=== PATIENT | female | born 1960 | race American Indian/Alaskan Native ===

== ENCOUNTER 2018-09-27 15:33 | Emergency (ER) | payer MEDICARE, OTHER ==
[~2018-09-27] VITALS: Ht 167.6 cm; Wt 113.4 kg
--- OUTSIDE RECORDS SUMMARY | ~2018-09-27 | XMS | Clinical Summary ---
Demographics + + + | Address | [address] | | | [place] [address] | + + + | Home Phone | | + + + | Preferred Language | Unknown | + + + | Marital Status | | + + + | Gnosticism Affiliation | 1041 | + + + | Race | Unknown | + + + | Ethnic Group | Unknown | + + + Author + + + | Author | [facility] | | | and [place] | + + + | Organization | [facility] | | | and [place] | + + + | Address | Unknown | + + + | Phone | Unavailable | + + + Support + + +---------+ + | Name | Relationship | Address | Phone | + + +---------+ + | None,Per Patient | ECON | Unknown | | + + +---------+ + Care Team Providers + +------+ + | Care Recruitment Advertising Manager Name | Role | Phone | + +------+ + | Aye Stock PA-C | PP | | + +------+ + Allergies + + + + + + | Active Allergy | Reactions | Severity | Noted | Comments | | | | | Date | | + + + + + + | Atenolol | Hives | | 01/29/20 | | | | | | 14 | | + + + + + + | Bee Venom | | | 09/07/19 | | | | | | 16 | | + + + + + + | Codeine | Hives | | 11/20/19 | | | | | | 13 | | + + + + + + | Duloxetine | Hives | | 11/20/19 | | | | | | 13 | | + + + + + + | Gabapentin | Rash | Low | 07/23/19 | | | | | | 17 | | + + + + + + | Lidocaine | Hives | | 08/28/19 | | | | | | 17 | | + + + + + + | Metoprolol | Hives | | 12/30/19 | | | | | | 14 | | + + + + + + | Morphine | Hives | | 11/20/19 | | | | | | 13 | | + + + + + + | Naproxen | Hives | | 11/20/19 | | | | | | 13 | | + + + + + + | Nsaids | Hives | | 11/20/19 | | | | | | 13 | | + + + + + + | Penicillins | Hives | | 11/20/19 | | | | | | 13 | | + + + + + + | Pentazocine | Hives | | 11/20/19 | | | | | | 13 | | + + + + + + | Shellfish | | | 09/07/19 | | | | | | 16 | | + + + + + + | Tricyclic | | | 11/20/19 | | | Antidepressants | | | 13 | | + + + + + + | Hydrocodone | Hives | | 11/20/19 | | | | | | 13 | | + + + + + + Medications + + + +---------+------+------+-------+ | Medication | Sig | Dispensed | Refills | Star | End | Statu | | | | | | t | Date | s | | | | | | Date | | | + + + +---------+------+------+-------+ | Multiple | Take by mouth | | 0 | | | Activ | | Vitamins-Minerals | Daily. | | | | | e | | (DAILY MULTI | | | | | | | | VITAMIN/MINERALS PO) | | | | | | | + + + +---------+------+------+-------+ | [place] 3 1000 MG | Take 2 capsules by | | 0 | | | Activ | | CAPS | mouth Daily. | | | | | e | + + + +---------+------+------+-------+ | magnesium, as | Take 250 mg by mouth | | 0 | | | Activ | | oxide, 250 MG tablet | Daily. | | | | | e | + + + +---------+------+------+-------+ | Potassium | Take 1 tablet by | | 0 | | | Activ | | Gluconate 595 MG | mouth Daily. | | | | | e | | TBCR | | | | | | | + + + +---------+------+------+-------+ | Raspberry Ketones | Take 1 capsule by | | 0 | | | Activ | | 100 MG CAPS | mouth Daily. | | | | | e | + + + +---------+------+------+-------+ | Specialty Vitamins | Take 3 tablets by | | 0 | | | Activ | | Products (COLLAGEN | mouth Daily. | | | | | e | | ULTRA) CAPS | | | | | | | + + + +---------+------+------+-------+ | niacin | Take 500 mg by mouth | | 0 | | | Activ | | (SLO-NIACIN) 500 mg | nightly. | | | | | e | | CR tablet | | | | | | | + + + +---------+------+------+-------+ | Plant Sterols and | Take 800 mg by mouth | | 0 | | | Activ | | Stanols (CHOLESTOFF | Daily. | | | | | e | | PO) | | | | | | | + + + +---------+------+------+-------+ | Cholecalciferol | Take 2,000 Units by | | 0 | | | Activ | | (VITAMIN D-3) 2000 | mouth Daily. | | | | | e | | units CAPS | | | | | | | + + + +---------+------+------+-------+ | B Complex Vitamins | Take by mouth | | 0 | | | Activ | | (B COMPLEX PO) | Daily. | | | | | e | + + + +---------+------+------+-------+ | TURMERIC PO | Take by mouth | | 0 | | | Activ | | | Daily. | | | | | e | + + + +---------+------+------+-------+ | UNABLE TO FIND | Take 3 capsules by | | 0 | | | Activ | | | mouth Daily. Med | | | | | e | | | Name: Des Gaitan | | | | | | | | Caps | | | | | | + + + +---------+------+------+-------+ | Misc Natural | Take by mouth. | | 0 | | | Activ | | Products (TART | | | | | | e | | CAMACHO ADVANCED) | | | | | | | | CAPS | | | | | | | + + + +---------+------+------+-------+ Active Problems + + + | Problem | Noted Date | + + + | Pacemaker reprogramming/check | 02/16/2015 | + + + | PVC (premature ventricular contraction) | 04/01/2013 | + + + + + | Overview: Holter Monitor 03/07/13. | + + + + + | Pacemaker, MEDTRONIC - 12/29/12, Bradycardia, SUW | 01/10/2013 | + + + + + | Overview: Formatting of this note might be different from the | | original. MODEL NAME MODEL# SERIAL# DATE IMPLANTED GENERATOR | | Medtronic Adapta [id number] [id number] 12/29/12 RV LEAD Medtronic | | Active Bilpolar CapSureFix 4076 - 52cm [id number] A LEAD | | Medtronic Active Bilpolar CapSureFix 4076 - 45cm [id number] | | 12/29/12 | + + + + + | Chest pain | 12/16/2012 | + + + + + | Overview: Chest XR 11/30/12. | | Cardiac Cath, 03/15/13, LVEF 65-70%. | + + + + + | SOB (shortness of breath) | 12/16/2012 | + + + | Bradycardia | 11/23/2012 | + + + + + | Overview: Holter Monitor 12/15/12. | | Echo 12/16/12, LVEF 55%. | | Nuclear Stress Test 12/15/12, LVEF 64%. | | Pacemaker, Medtronic, 12/29/12. SUW | + + + + + | Lightheadedness | 11/23/2012 | + + + | Pre-syncope | 11/23/2012 | + + + | Tobacco abuse | 11/19/2012 | + + + | Depression | 11/19/2012 | + + + | GERD (gastroesophageal reflux disease) | 11/19/2012 | + + + | Dizziness | 11/19/2012 | + + + | Paresthesias | 11/19/2012 | + + + | Hypercalcemia | 11/19/2012 | + + + Family History + + +------+ + | Medical History | Relation | Name | Comments | + + +------+ + | Mental retardation | Brother | | | + + +------+ + | Heart disease | Brother | | | + + +------+ + | Mental retardation | Child | | FAS | + + +------+ + | Alcohol abuse | Father | | | + + +------+ + | Heart disease | Father | | | + + +------+ + | Hypertension | Father | | | + + +------+ + | Parkinsonism | Father | | | + + +------+ + | Breast cancer | Maternal | | | | | Aunt | | | + + +------+ + | Tuberculosis | Maternal | | | | | Aunt | | | + + +------+ + | Tuberculosis | Maternal | | | | | Grandfath | | | | | er | | | + + +------+ + | No known problems | Maternal | | | | | Grandmoth | | | | | er | | | + + +------+ + | No known problems | Maternal | | | | | Uncle | | | + + +------+ + | Diabetes | Mother | | | + + +------+ + | Hypertension | Mother | | | + + +------+ + | Obesity | Mother | | | + + +------+ + | Stroke | Mother | | | + + +------+ + | Hypertension | Other | | grandparent | + + +------+ + | Thyroid disease | Other | | goiter, family hx | + + +------+ + | Seizures | Other | | FAMILY HX | + + +------+ + | Alcohol abuse | Paternal | | | | | Aunt | | | + + +------+ + | Diabetes | Paternal | | | | | Aunt | | | + + +------+ + | Rheum arthritis | Paternal | | | | | Aunt | | | + + +------+ + | No known problems | Paternal | | | | | Grandfath | | | | | er | | | + + +------+ + | Diabetes | Paternal | | | | | Grandmoth | | | | | er | | | + + +------+ + | Hypertension | Sister | | | + + +------+ + | Diabetes | Sister | | | + + +------+ + + +--------+ + + | Relation | Name | Status | Comments | + +--------+ + + | Brother | | | | + +--------+ + + | Brother | | Alive | | + +--------+ + + | Brother | | Alive | | + +--------+ + + | Brother | | Alive | | + +--------+ + + | Brother | | | | + +--------+ + + | Brother | | | | + +--------+ + + | Child | | Alive | | + +--------+ + + | Child | | Alive | | + +--------+ + + | Child | | Alive | | + +--------+ + + | Child | | | | + +--------+ + + | Father | | | | | | | (Age | | | | | 72) | | + +--------+ + + | Maternal Aunt | | | | + +--------+ + + | Maternal Aunt | | | | + +--------+ + + | Maternal Aunt | | | | + +--------+ + + | Maternal Grandfather | | | TB | + +--------+ + + | Maternal Grandmother | | | | + +--------+ + + | Maternal Uncle | | | | + +--------+ + + | Maternal Uncle | | | | + +--------+ + + | Mother | | Alive | | + +--------+ + + | Other | | | | + +--------+ + + | Other | | | | + +--------+ + + | Other | | | | + +--------+ + + | Paternal Aunt | | | | + +--------+ + + | Paternal Aunt | | | | + +--------+ + + | Paternal Aunt | | | | + +--------+ + + | Paternal Aunt | | | | + +--------+ + + | Paternal Grandfather | | | | + +--------+ + + | Paternal Grandmother | | | | + +--------+ + + | Sister | Alesha | Alive | | + +--------+ + + | Sister | Lexie | Alive | Half -Sibling | + +--------+ + + | Sister | | | | + +--------+ + + | Sister | | | | + +--------+ + + Social History + + + +--------+ + | Tobacco Use | Types | Packs/Day | Years | Date | | | | | Used | | + + + +--------+ + | Former Smoker | Cigarettes | 2 | 41 | 12/11/1971 - | | | | | | 12/10/2012 | + + + +--------+ + + +---+---+---+ | Smokeless Tobacco: | | | | | Never Used | | | | + +---+---+---+ + + +---------+ + | Alcohol Use | Drinks/We | oz/Week | Comments | | | ek | | | + + +---------+ + | No | 0 | 0.0 | Recovering Alcoholic: QUIT 2006 | | | Standard | | | | | drinks or | | | | | | | | | | equivalen | | | | | t | | | + + +---------+ + + + + | Sex Assigned at | Date Recorded | | | | + + + | Not on file | | + + + + + + + | Job Start Date | Occupation | Industry | + + + + | Not on file | Not on file | Not on file | + + + + + + + + | Travel History | Travel Start | Travel End | + + + + + + | No recent travel history available. | + + Last Filed Vital Signs + + + + | Vital Sign | Reading | Time Taken | + + + + | Blood Pressure | 124/68 | 04/01/20181005 PST | + + + + | Pulse | 70 | 04/01/20181005 PST | + + + + | Temperature | 37.3 C (99.2 F) | 08/27/20161216 PDT | + + + + | Respiratory Rate | 20 | 04/01/20181005 PST | + + + + | Oxygen Saturation | 95% | 08/27/20168 PDT | + + + + | Inhaled Oxygen | - | - | | Concentration | | | + + + + | Weight | 100.5 kg (221 lb 9 | 04/01/20181005 PST | | | oz) | | + + + + | Height | 170.2 cm (5' 7") | 04/01/20181005 PST | + + + + | Body Mass Index | 34.7 | 04/01/20181005 PST | + + + + Plan of Treatment + + + + + | Health Maintenance | Due Date | Last Done | Comments | + + + + + | Hepatitis C | | | | | Screening | 3 | | | + + + + + | Breast Cancer | | | | | Screening (Ages | 3 | | | | 50-74) | | | | + + + + + | Colorectal Cancer | | | | | Screening | 3 | | | | (Colonoscopy) | | | | + + + + + | Adult Annual | | | | | Wellness Visit | 5 | | | + + + + + | Lung Cancer | | | | | Screening | 8 | | | + + + + + | Vaccine: Zoster (2 | | 01/01/2018 | | | of 2) | 8 | | | + + + + + | Vaccine: | | 07/24/2010 | | | Dtap/Tdap/Td (2 - | 1 | | | | Td) | | | | + + + + + | Vaccine: Influenza | Completed | 01/01/2018, 01/23/2017, | | | | | 12/21/2015, Additional history | | | | | exists | | + + + + + Implants + +--------+--------+ +--------+--------+--------+ | Implanted | Type | Area | Manufacture | Device | Shelf | Model | | | | | r | | Expira | / | | | | | | Identi | tion | Serial | | | | | | fier | Date | / Lot | + +--------+--------+ +--------+--------+--------+ | Medtronic - Dual | Pacema | Chest | | | | | | ChamberImplanted: 12/29/2012 | ker | Wall | | | | /[id number] | | by Oliva Haines MD | | | | | | [id number] | | (Quantity not on | | | | | | /ADDR0 | | file)Explanted: | | | | | | 1 | + +--------+--------+ +--------+--------+--------+ Results Not on filefrom Last 3 Months Insurance + +--------+ +--------+ +---------+--------+ | Payer | Benefi | Subscriber | Effect | Phone | Address | Type | | | t Plan | ID | ines | | | | | | / | | Dates | | | | | | Group | | | | | | + +--------+ +--------+ +---------+--------+ | MEDICARE | MEDICA | [id number] | 04/27/19 | [phone] | | Medica | | | RE | | 17-Pre | 5 | | re | | | PART A | | sent | | | | | | AND B | | | | | | + +--------+ +--------+ +---------+--------+ | [place] | MEDICA | [id number] | | [phone] | | Medica | | | ID | | 017-Pr | 2 | | id | | | [place] | | esent | | | | + +--------+ +--------+ +---------+--------+ | [facility] | IHS | [id number] | | | | Indemn | | SERVICE | YELLOW | | 013-Pr | | | ity | | | [place] | | esent | | | | + +--------+ +--------+ +---------+--------+ + +--------+ +--------+ + + | Guarantor Name | Accoun | Relation to | Date | Phone | Billing Address | | | t Type | Patient | of | | | | | | | | | | + +--------+ +--------+ + + | Anna Willis | Person | Self | [birth year] | [address] | | | will/Tony | | 1961 | [phone] | [place] [address] | | | vickie | | | 5 (Home) | | + +--------+ +--------+ + + Advance Directives Patient has advance care planning documents on file. For more information, please contact:[facility] [place] [address]
--- OUTSIDE RECORDS SUMMARY | ~2018-09-27 | XMS | Clinical Summary ---
Demographics + + + | Address | [address] | | | [place] [address] | + + + | Home Phone | | + + + | Preferred Language | Unknown | + + + | Marital Status | | + + + | Christian Affiliation | 1041 | + + + | Race | Unknown | + + + | Ethnic Group | Unknown | + + + Author + + + | Author | [facility] | | | and [place] | + + + | Organization | [facility] | | | and [place] | [...] Team Providers + +------+ + | Care Meter Engineer Name | Role | Phone | + [...] | | + + + +---------+------+------+-------+ | [place] 3 1000 MG | Take 2 capsules [...] IMPLANTED GENERATOR | | Medtronic Adapta ADDR01 [id number] 12/29/12 RV LEAD Medtronic | | Active Bilpolar CapSureFix 4076 - 52cm [id number] A LEAD | | Medtronic Active Bilpolar CapSureFix 4076 - 45cm [id number] | | 12/29/12 | + + + [...] +--------+ +---------+--------+ | MEDICARE | MEDICA | [id number] | 04/27/19 | [phone] | | Medica | | | RE | | 17-Pre | 5 | | re | | | PART A | | sent | | | | | | AND B | | | | | | + +--------+ +--------+ +---------+--------+ | [place]ID [place] | MEDICA | [id number] | | [phone] | | Medica | | | ID | | 017-Pr | 2 | | id | | | [place] | | esent | | | | + +--------+ +--------+ +---------+--------+ | [facility] | IHS | [id number] | | | | Indemn | | [...] Person | Self | [birth year] | [address] | | | will/Tony [birth year] | 1961 | [phone] | [place] [address] | | | vickie | | | 5 (Home) | | + +--------+ +--------+ + + Advance Directives Patient has advance care planning documents on file. For more information, please contact:[facility] [place] [address]
[~2018-09-27 15:33] MED LIST: MAGNESIUM250 MG PO; MULTI-DAY VITA1 EACH PO; NIACIN500 M1 PO; OMEGA 3 FISH O1 EACH PO; POTASSIUM CHLO500 G1 PO; RASPBERRY KETO100 MG PO
[2018-09-27] MEDS ORDERED: VITAMIN D5000 UNI1 PO (15:55)
== END 2018-09-27 18:36 | disposition home or self-care (01) ==
LOC: ED 15:33
DX: T63.441A Toxic effect of venom of bees, accidental (unintentional), initial encounter (principal); Z90.89 Acquired absence of other organs; Z95.0 Presence of cardiac pacemaker; Z88.5 Allergy status to narcotic agent; Z88.0 Allergy status to penicillin; Z88.6 Allergy status to analgesic agent; Z79.899 Other long term (current) drug therapy
CPT/HCPCS: 96374; 99282-25

== ENCOUNTER 2024-06-23 13:40 | Emergency (ER) | payer MEDICARE, OTHER ==
[~2024-06-23] VITALS: Ht 167.6 cm; Wt 123.4 kg
[~2024-06-23 13:40] MED LIST changes: +METHOCARBAMOL750 MG PO; +VITAMIN D5000 UNI1 PO
[2024-06-23] MEDS ORDERED: EPINEPHRIN0.3 MG/0.3 IM (13:51)
[2024-06-23] MEDS ORDERED: FLUTICASONE PRO16 GM NAS (13:51)
[2024-06-23 14:16] LABS: BASOPHILS 0.9 % (0-2); EOSINOPHILS 1.2 % (0-6); HEMATOCRIT 38.4 % (35.0-50.0); HEMOGLOBIN 13.6 g/dL (12.0-18.0); LYMPHOCYTES 36.4 % (24-44); MCH 30.3 (27-36); MCHC 35.3 g/dl (30-36); MCV 85.9 fl (81-99); MONOCYTES 9.6 % (0-12); NEUTROPHILS 51.9 % (39-80); PLATELET COUNT 276 K/uL (140-440); RBC 4.48 M/ul (4.3-5.7)
[2024-06-23 14:32] LABS: ALBUMIN 3.6 g/dL (3.4-5.0); ALBUMIN/GLOBULIN RATIO 0.95 (1.1-2.4); ANION GAP 11.6 (7-21); BILIRUBIN, TOTAL 0.4 mg/dL (0.2-1.0); BUN/CREATININE RATIO 9.67 (6.0-28.6); CALCIUM 9.2 mg/dL (8.5-10.1); CREATININE, SERUM 0.93 mg/dL (0.55-1.02); POTASSIUM 3.6 mmol/L (3.5-5.1); PROTEIN, TOTAL 7.4 g/dL (6.4-8.2)
[2024-06-23 15:25] VITALS: BP 138/73
--- NOTE | 2024-06-24 13:00 | EKG ---
[facility] [address] [facility] [place] [address] Signed Atrial-paced rhythm Abnormal ECG When compared with ECG of 01-SEP-2023 11:13, Electronic atrial pacemaker has replaced Sinus rhythm Inverted T waves have replaced nonspecific T wave abnormality in Lateral leads Confirmed by Jadyn Cortez DO ([id number]) on 06/24/2024 1:00:42 PM Electronically Signed By: JADYN CORTEZ DO 06/24/24 1300 PATIENT NAME: BRUNA VALLECILLO Electrocardiogram DATE OF : 64 PHYSICIAN: JADYN CROTEZ DO REPORT #: [id number] REPORT IS CONFIDENTIAL AND NOT TO BE RELEASED WITHOUT AUTHORIZATION
== END 2024-06-23 15:25 | disposition home or self-care (01) ==
LOC: ED 13:40
PROVIDERS: Emergency Medicine
DX: K80.20 Calculus of gallbladder without cholecystitis without obstruction (principal); K21.9 Gastro-esophageal reflux disease without esophagitis; Z87.891 Personal history of nicotine dependence; Z88.6 Allergy status to analgesic agent; Z88.5 Allergy status to narcotic agent; Z88.0 Allergy status to penicillin; Z88.8 Allergy status to other drugs, medicaments and biological substances; Z79.51 Long term (current) use of inhaled steroids
CPT/HCPCS: 36415; 80053; 83690; 84484; 85025; 93005; 93010; 99284

== ENCOUNTER 2024-08-09 14:53 | Emergency (ER) | payer MEDICARE, OTHER ==
[~2024-08-09] VITALS: Ht 167.6 cm; Wt 124.3 kg
[~2024-08-09 14:53] MED LIST changes: +EPINEPHRIN0.3 MG/0.3 IM; +FLUTICASONE PRO16 GM NAS
[2024-08-09 15:21] LABS: BASOPHILS 0.8 % (0-2); EOSINOPHILS 1.2 % (0-6); HEMATOCRIT 36.6 % (35.0-50.0); HEMOGLOBIN 12.7 g/dL (12.0-18.0); LYMPHOCYTES 37.2 % (24-44); MCHC 34.8 g/dl (30-36); MCV 83.4 fl (81-99); MONOCYTES 8.8 % (0-12); PLATELET COUNT 280 K/uL (140-440); RBC 4.39 M/ul (4.3-5.7); RDW 13.9 (10.5-15.0)
[2024-08-09 15:45] LABS: ALBUMIN 3.3 g/dL (3.4-5.0); ALBUMIN/GLOBULIN RATIO 0.87 (1.1-2.4); ANION GAP 11.6 (7-21); BILIRUBIN, TOTAL 0.3 mg/dL (0.2-1.0); BUN/CREATININE RATIO 10.2 (6.0-28.6); CALCIUM 8.9 mg/dL (8.5-10.1); CREATININE, SERUM 0.98 mg/dL (0.55-1.02); POTASSIUM 3.6 mmol/L (3.5-5.1); PROTEIN, TOTAL 7.1 g/dL (6.4-8.2)
[2024-08-09 16:32] LABS: BILIRUBIN, URINE NEGATIVE (negative); BLOOD/HGB, URINE NEGATIVE (Negative); KETONE, URINE NEGATIVE (Negative); LEUK ESTERASE, URINE NEGATIVE (negative); NITRITE, URINE NEGATIVE (negative)
[2024-08-09] MEDS ORDERED: FLUTICASONE PRO16 GM NAS (16:51)
[2024-08-09] MEDS ORDERED: LACTATED RINGER'S 1,000 ML IV SCH (19:30)
[2024-08-09 20:05] VITALS: BP 121/54
== END 2024-08-09 19:50 | disposition home or self-care (01) ==
LOC: ED 14:53
PROVIDERS: Emergency Medicine
DX: K80.20 Calculus of gallbladder without cholecystitis without obstruction (principal); K21.9 Gastro-esophageal reflux disease without esophagitis; Z79.51 Long term (current) use of inhaled steroids; Z88.6 Allergy status to analgesic agent; Z88.5 Allergy status to narcotic agent; Z88.0 Allergy status to penicillin; Z88.8 Allergy status to other drugs, medicaments and biological substances; Z87.891 Personal history of nicotine dependence
CPT/HCPCS: 36415; 76705; 80053; 81003; 83690; 85025; 99284-25

== ENCOUNTER 2024-10-19 09:10 | Day surgery (SDC) | payer MEDICARE, OTHER ==
[2024-10-12 13:06] VITALS: BP 129/69
[~2024-10-19] VITALS: Ht 167.6 cm; Wt 118.0 kg
[~2024-10-19 09:10] MED LIST changes: +CEFAZOLIN SODIUM 2 GM/20 ML SYR IV SCH; +IBLOOD GLUCOSE TEST STRIP 1 EA TEST VI PRN; +LACTATED RINGER'S 1,000 ML IV SCH; +METHYLPREDNISOLO4 M1 PO; +REFRESH OPTIVE15 ML OPTH; +TYLENOL EXTRA500 MG PO
[2024-10-19 09:45] VITALS: BP 122/76
--- NOTE | 2024-10-19 11:59 | NUR ---
IN PT ROOM TO UPDATE PT. PT STATES NO NEEDS OR QUESTIONS AT THIS TIME. DENIES WARM BLANKET. FRIEND JEFFRY PROVIDED COFFEE AND STATES NO FURTHER QUESTIONS OR NEEDS AT THIS TIME. CALL LIGHT WITHIN REACH. PT WATCHING TV AT THIS TIME W/FRIEND AT BEDSIDE.
[2024-10-19] MEDS ORDERED: SEVOFLURANE 250 ML BTL INH ONE (12:09)
[2024-10-19] MEDS ORDERED: fentaNYL citrate 100 MCG/2 ML VIAL ONE ×2 (12:51→13:58)
[2024-10-19] MEDS ORDERED: propofoL 200 MG/20 ML VIAL ONE ×2 (12:51→12:59)
[2024-10-19] MEDS ORDERED: LIDOCAINE HCL 2% 5 ML SDV ONE (12:51)
[2024-10-19] MEDS ORDERED: DEXAMETHASONE SOD PHOS 4 MG/ML VIAL ONE ×3 (12:51→13:25)
[2024-10-19] MEDS ORDERED: ROCURONIUM BROMIDE 50 MG/5 ML SYR ONE (12:51)
[2024-10-19] MEDS ORDERED: ondansetron HCL 4 MG/2 ML VIAL ONE ×2 (12:51→13:25)
[2024-10-19] MEDS ORDERED: CEFAZOLIN SODIUM 3 GM/30 ML SYR IV SCH (13:00)
[2024-10-19] MEDS ORDERED: SUCCINYLCHOLINE IN 0.9% NACL 200 MG/10 ML SYRINGE ONE (13:00)
[2024-10-19] MEDS ORDERED: SUGAMMADEX SODIUM 200 MG/2 ML ML ONE (13:55)
[2024-10-19] MEDS ORDERED: dexmedeTOMIDine HCl 200 MCG/2 ML VIAL ONE (14:13)
--- NOTE | 2024-10-19 14:34 | NUR ---
10/19/24 1434 Amanda Arellano 1420-PATIENT ARRIVED TO PACU ON 8L MASK RR EVEN PLACED ON 6L RR EVEN 100% PATIENT REACTIVE TO VERBAL STIMULI SLIGHTLY OPENING EYES. REPORTED "COLD" WARM BLANKET PROVIDED. ORIENTED TO PACU. CLOSES EYES. 4 LAP SITES TO ABDOMEN CDI. APACED HR 60
[2024-10-19] MEDS ORDERED: EPINEPHrine HCL 1 MG/ML AMP ONE (14:50)
[2024-10-19] MEDS ORDERED: Ropivacaine HCl 0.5% 30 ML VIAL ONE (14:50)
[2024-10-19] MEDS ORDERED: NALOXONE HCL 0.4 MG SYR IV PRN (15:00)
[2024-10-19] MEDS ORDERED: ACETAMINOPHEN 1,000 MG/100 ML VIAL IV ONE (15:00)
[2024-10-19] MEDS ORDERED: fentaNYL citrate 50 MCG/ML SDV IV PRN (15:00)
--- NOTE | 2024-10-19 15:25 | NUR ---
PT ARRIVES TO DS DEPT FROM PACU VIA STRETCHER. PT REPORTS PAIN IS TOLERABLE AT 5/10 IN RUQ. PT PASSING GAS BY BURPING. REPORT RECEIVED FROM BRUNA RN, ABDOMEN VISUALIZED WITH BRUNA ROMAN. PT PROVIDED ICE WATER, COFFEE, JELLO, AND CRACKERS. PT STATES NEED TO URINE VOID. PT SITS AT BEDSIDE AND REPORTS NO DIZZINESS, NAUSEA. GAIT IS STEADY PT STANDS AT BEDSIDE. THIS RN ASSISTS W/HANDHOLD AT PT REQUEST FOR COMFORT. PT TO RESTROOM FOR URINE VOID OF 375 ML CLEAR/YELLOW URINE. PT FRIEND JEFFRY RETRIEVED FROM HALLWAY AND NOW AT BEDSIDE. CALL LIGHT WITHIN REACH, PT REPORTS NO FURTHER NEEDS OR QUESTIONS AT THIS TIME.
[2024-10-19 15:26] VITALS: BP 127/65
--- NOTE | 2024-10-19 15:55 | NUR ---
THIS RN CALLS PHARMACY AND SPEAKS WITH PHARMACIST KORIN AT [facility] FOR VERBAL PRESCRIPTION. READ BACK CONFIRMED.
--- NOTE | 2024-10-19 16:07 | NUR ---
IN PT ROOM FOR PAIN ASSESSMENT. PT STATES SHE IS AT A 3/10 AND WOULD LIKE TO GET DRESSED. THIS RN ASSISTS WITH SHORTS AND SHOES. CALL LIGHT WITHIN REACH FOR REMAINDER OF CLOTHING.
--- NOTE | 2024-10-19 16:20 | NUR ---
THIS RN IN ROOM FOR DC EDUCATION. PT STATES VERBAL UNDERSTANDING AND NO FURTHER QUESTIONS AT THIS TIME. PT OFF OF UNIT VIA WC TO PASSENGER SIDE OF VEHICLE. ALL BELONGINGS IN PT POSSESSION INCLUDING TYLENOL BOTTLE PRESCRIPTION PT BROUGHT WITH HER TODAY. ICE WATER AND COFFEE PROVIDED AND IN PT HAND. PT STATES NO FURTHER NEEDS OR QUESTIONS AT THIS TIME.
[2024-10-19 16:22] VITALS: BP 126/69
--- NOTE | 2024-10-20 11:30 | OR ---
[facility] [address] [place], [place] [address] Signed DATE OF OPERATION: 10/19/2024 SURGEON: Ricky Solomon DO PREOPERATIVE DIAGNOSES: 1. Cholecystitis. 2. Cholelithiasis. POSTOPERATIVE DIAGNOSES: 1. Cholecystitis. 2. Cholelithiasis. PROCEDURE PERFORMED: Laparoscopic cholecystectomy. ANESTHESIA: General. ESTIMATED BLOOD LOSS: Minimal. DRAINS: None. COMPLICATIONS: None. DESCRIPTION OF PROCEDURE: The patient was brought into the operating room, placed in supine position. After induction of general endotracheal anesthesia, the abdomen was then sterilely shaved, prepped, and draped in usual fashion. linear incision in the subumbilical region, a 5 mm incision was made, and the 5 mm Visiport trocar was entered into the abdominal cavity, and the abdomen was insufflated with approximately 4 L of CO2 gas. A separate stab incision was made in the epigastric region. 10 mm trocar was placed under direct visualization, and two separate 5 mm trocars were placed in the right lateral quadrant and right upper quadrant under direct visualization as well. A ratcheted grasper was then utilized to grasp the gallbladder at its superior aspect and retracted toward the right hemidiaphragm, exposing the infundibulum, some dense adhesions in this area, and they were taken down with blunt and sharp technique and Bovie cautery. Infundibulum was identified. The fat pad over the triangle of Calot was then further Electronically Signed By: RICKY SOLOMON DO 10/20/24 1130 PATIENT NAME: BRUNA VALLECILLO OPERATIVE REPORT DATE OF : 64 REPORT #: [id number] PHYSICIAN: RICKY SOLOMON DO PCP: BJ GUERRA MD REPORT IS CONFIDENTIAL AND NOT TO BE RELEASED WITHOUT AUTHORIZATION [facility] [address] [place], [place] [address] Signed mobilized, exposing the cystic duct. Cystic duct was then skeletonized, encircled, clipped three times proximally, one time distally and then divided. Dissection continued in this region, and the cystic artery was identified, skeletonized, encircled, clipped two times proximally, one time distally and then divided. Gallbladder was then brought up with attachments of the liver bed utilizing blunt and sharp technique and a Bovie cautery. Bleeding points in the gallbladder bed were controlled with electrocautery. This was taken up to the superior aspect of the gallbladder, and the liver bed was then coated with hemostatic powder and a hemostatic sheet. Clips were found to be in place satisfactory and secure. Gallbladder was transected, placed in an Endobag, brought up through the epigastric port. The region was then irrigated and dried. No other bleeding sites were noted. The fascia of the epigastric port was then closed with interrupted 0 Vicryl in a oaoaie-be-eddrl fashion. The subcutaneous tissue was closed with a 3-0 Vicryl in subcuticular fashion. All trocars were removed and skin was closed with 4-0 Monocryl in subcuticular fashion. Dermabond dressing was then applied. The patient tolerated the procedure well, went to recovery room in satisfactory condition. Ricky Solomon DO RS/MODL /[id number] Copies: ~ Electronically Signed By: RICKY SOLOMON DO 10/20/24 1130 PATIENT NAME: BRUNA VALLECILLO OPERATIVE REPORT DATE OF : 64 REPORT #: [id number] PHYSICIAN: RICKY SOLOMON DO PCP: BJ GUERRA MD REPORT IS CONFIDENTIAL AND NOT TO BE RELEASED WITHOUT AUTHORIZATION
== END 2024-10-19 16:30 | disposition home or self-care (01) ==
LOC: DS 09:10
PROVIDERS: ATTEND Surgery
PROC: 0FT44ZZ Resection of Gallbladder, Percutaneous Endoscopic Approach (ICD-10-PCS; principal; 2024-10-19 11:00)
DX: K80.10 Calculus of gallbladder with chronic cholecystitis without obstruction (principal); K21.9 Gastro-esophageal reflux disease without esophagitis; J44.9 Chronic obstructive pulmonary disease, unspecified; Z79.899 Other long term (current) drug therapy; Z88.0 Allergy status to penicillin; Z88.5 Allergy status to narcotic agent; Z88.8 Allergy status to other drugs, medicaments and biological substances
CPT/HCPCS: 00790; J0131; J0173; J0330; J0690; J1100; J2003; J2405; J2704; J2795; J3010; J3490; J7121

== ENCOUNTER 2024-10-19 20:28 | Emergency (ER) | payer MEDICARE, OTHER ==
[~2024-10-19] VITALS: Ht 167.6 cm; Wt 116.6 kg
[~2024-10-19 20:28] MED LIST changes: -CEFAZOLIN SODIUM 2 GM/20 ML SYR IV SCH; -IBLOOD GLUCOSE TEST STRIP 1 EA TEST VI PRN; -LACTATED RINGER'S 1,000 ML IV SCH
--- OUTSIDE RECORDS SUMMARY | 2024-10-19 20:35 | XMS ---
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 Brandon has no Care Guidelines for this patient. Parul VISIT COUNT (12 MO.) 4 [facility] [place]. TOTAL 4 NOTE: Visits indicate total known visits. ED/C VISIT TRACKING (12 MO.) 10/19/2024 20:29 [facility] [place] TYPE: Emergency COMPLAINT: - POST OP PROBLEM 09/26/2024 19:37 [facility] [place] TYPE: Emergency COMPLAINT: - BACK PAIN DIAGNOSES: - Allergy status to analgesic agent - Allergy status to narcotic agent - Allergy status to other drugs, medicaments and biological substances - Allergy status to penicillin - Bee allergy status - Dorsalgia, unspecified - Gastro-esophageal reflux disease without esophagitis - manager terminal (current) use of inhaled steroids - Personal history of nicotine dependence - Sciatica, left side 08/09/2024 14:53 [facility] [place] TYPE: Emergency COMPLAINT: - BACK PAIN DIAGNOSES: - Allergy status to analgesic agent - Allergy status to narcotic agent - Allergy status to other drugs, medicaments and biological substances - Allergy status to penicillin - Calculus of gallbladder without cholecystitis without obstruction - Gastro-esophageal reflux disease without esophagitis - manager terminal (current) use of inhaled steroids - Personal history of nicotine dependence - Right upper quadrant pain 06/23/2024 13:41 [facility] [place] TYPE: Emergency COMPLAINT: - ABD PAIN DIAGNOSES: - Allergy status to analgesic agent - Allergy status to narcotic agent - Allergy status to other drugs, medicaments and biological substances - Allergy status to penicillin - Calculus of gallbladder without cholecystitis without obstruction - Gastro-esophageal reflux disease without esophagitis - nursing home (current) use of inhaled steroids - Personal history of nicotine dependence - Unspecified abdominal pain INPATIENT VISIT TRACKING (12 MO.) No inpatient visits to display in this time frame [email or web address]
[2024-10-19] MEDS ORDERED: MEPERIDINE HCL 25 MG/1 ML VIAL IM ONE (20:45)
[2024-10-19] MEDS ORDERED: ACETAMINOPHEN 500 MG TAB PO ONE (21:00)
[2024-10-19 21:27] VITALS: BP 112/69
== END 2024-10-19 21:29 | disposition home or self-care (01) ==
LOC: ED 20:28
DX: Z48.815 Encounter for surgical aftercare following surgery on the digestive system (principal); K21.9 Gastro-esophageal reflux disease without esophagitis; Z88.6 Allergy status to analgesic agent; Z88.0 Allergy status to penicillin; Z88.8 Allergy status to other drugs, medicaments and biological substances; Z91.030 Bee allergy status; Z88.5 Allergy status to narcotic agent; Z87.891 Personal history of nicotine dependence
CPT/HCPCS: 99283; A9270

== ENCOUNTER 2024-11-12 08:25 | Emergency (ER) | payer MEDICARE, OTHER ==
[~2024-11-12] VITALS: Ht 167.6 cm; Wt 118.5 kg
--- OUTSIDE RECORDS SUMMARY | 2024-11-12 08:31 | XMS ---
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 Brandon has no Care Guidelines for this patient. Parul VISIT COUNT (12 MO.) 5 [facility] TOTAL 5 NOTE: Visits indicate total known visits. ED/C VISIT TRACKING (12 MO.) [facility] COMPLAINT: - ABD PAIN 10/19/2024 20:29 [facility] TYPE: Emergency COMPLAINT: - POST OP PROBLEM DIAGNOSES: - Allergy status to analgesic agent - Allergy status to narcotic agent - Allergy status to other drugs, medicaments and biological substances - Allergy status to penicillin - Bee allergy status - Encounter for surgical aftercare following surgery on the digestive system - Gastro-esophageal reflux disease without esophagitis - Other acute postprocedural pain - Personal history of nicotine dependence 09/26/2024 19:37 [facility] TYPE: Emergency COMPLAINT: - BACK PAIN DIAGNOSES: - Allergy status to analgesic agent - Allergy status to narcotic agent - Allergy status to other drugs, medicaments and biological substances - Allergy status to penicillin - Bee allergy status - Dorsalgia, unspecified - Gastro-esophageal reflux disease without esophagitis - [facility] (current) use of inhaled steroids - Personal [...] - Gastro-esophageal reflux disease without esophagitis - 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 TYPE: Emergency COMPLAINT: - ABD PAIN DIAGNOSES: - Allergy status to analgesic agent - Allergy status to narcotic agent - Allergy status to other drugs, medicaments and biological substances - Allergy status to penicillin - Calculus of gallbladder without cholecystitis without obstruction - Gastro-esophageal reflux disease without esophagitis - [facility] (current) use of inhaled steroids - Personal history of nicotine dependence - Unspecified abdominal pain INPATIENT VISIT TRACKING (12 MO.) No inpatient visits to display in this time frame [email or web address]
[2024-11-12] MEDS ORDERED: METHYLPREDNISOLO4 M1 (09:07)
[2024-11-12] MEDS ORDERED: ONDANSETRON HCL4 MG (09:07)
[2024-11-12] MEDS ORDERED: LEVOFLOXACIN500 MG PO (09:07)
[2024-11-12 09:08] LABS: BASOPHILS 0.9 % (0.1-1.2); EOSINOPHILS 1.8 % (0.7-5.8); LYMPHOCYTES 39.2 % (19.3-51.7); MCH 27.5 PG (25.6-32.2); MCHC 32.0 g/dL (32.2-35.5); MCV 86.1 fL (79.4-94.8); MONOCYTES 10.1 % (4.7-12.5); NEUTROPHILS 47.7 % (34.0-71.1); RBC 4.32 M/uL (3.93-5.22)
[2024-11-12 09:24] LABS: ALT (SGPT) 29.0 U/L (14-59); AST (SGOT) 13.0 U/L (15-37); GLOMERULAR FILTRATION RATE,EST 75.0 mL/min (>60); PROTEIN, TOTAL 6.9 g/dL (6.4-8.2); UREA NITROGEN 9.0 mg/dL (7-18)
[2024-11-12] MEDS ORDERED: MORPHINE SULFATE 4 MG/ML VIAL IV ONE (11:30)
[2024-11-12 11:35] LABS: BLOOD/HGB, URINE NEGATIVE (Negative); KETONE, URINE NEGATIVE (Negative); LEUK ESTERASE, URINE NEGATIVE (negative); NITRITE, URINE NEGATIVE (negative)
[2024-11-12 11:51] VITALS: BP 132/81
== END 2024-11-12 11:51 | disposition home or self-care (01) ==
LOC: ED 08:25
PROVIDERS: Emergency Medicine
DX: R10.11 Right upper quadrant pain (principal); K21.9 Gastro-esophageal reflux disease without esophagitis; Z79.51 Long term (current) use of inhaled steroids; Z79.899 Other long term (current) drug therapy; Z88.5 Allergy status to narcotic agent; Z88.1 Allergy status to other antibiotic agents; Z91.030 Bee allergy status; Z88.6 Allergy status to analgesic agent; Z88.0 Allergy status to penicillin; Z88.8 Allergy status to other drugs, medicaments and biological substances; Z87.891 Personal history of nicotine dependence
CPT/HCPCS: 36415; 74177; 80053; 81003; 83690; 85025; 99284-25; Q9967

== ENCOUNTER 2024-11-14 07:20 | Emergency (ER) | payer MEDICARE, OTHER ==
[~2024-11-14] VITALS: Ht 167.6 cm; Wt 115.1 kg
[~2024-11-14 07:20] MED LIST changes: +LEVOFLOXACIN500 MG PO; +METHYLPREDNISOLO4 M1; +ONDANSETRON HCL4 MG
--- OUTSIDE RECORDS SUMMARY | 2024-11-14 07:27 | XMS ---
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 Brandon has no Care Guidelines for this patient. Parul VISIT COUNT (12 MO.) 6 [facility] TOTAL 6 NOTE: Visits indicate total known visits. 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
[2024-11-14 07:59] LABS: BASOPHILS 0.7 % (0.1-1.2); EOSINOPHILS 1.1 % (0.7-5.8); LYMPHOCYTES 37.9 % (19.3-51.7); MCH 27.3 PG (25.6-32.2); MCHC 31.9 g/dL (32.2-35.5); MCV 85.4 fL (79.4-94.8); MONOCYTES 11.8 % (4.7-12.5); NEUTROPHILS 48.3 % (34.0-71.1); RBC 4.66 M/uL (3.93-5.22)
[2024-11-14 08:08] LABS: ALT (SGPT) 27.0 U/L (14-59); AST (SGOT) 13.0 U/L (15-37); GLOMERULAR FILTRATION RATE,EST 60.0 mL/min (>60); PROTEIN, TOTAL 7.7 g/dL (6.4-8.2); UREA NITROGEN 10.0 mg/dL (7-18)
[2024-11-14 08:49] LABS: BLOOD/HGB, URINE NEGATIVE (Negative); KETONE, URINE NEGATIVE (Negative); LEUK ESTERASE, URINE NEGATIVE (negative); NITRITE, URINE NEGATIVE (negative)
[2024-11-14 10:08] VITALS: BP 123/72
== END 2024-11-14 10:09 | disposition home or self-care (01) ==
LOC: ED 07:20
PROVIDERS: Emergency Medicine
DX: R10.11 Right upper quadrant pain (principal); K21.9 Gastro-esophageal reflux disease without esophagitis; Z79.51 Long term (current) use of inhaled steroids; Z79.899 Other long term (current) drug therapy; Z88.5 Allergy status to narcotic agent; Z88.1 Allergy status to other antibiotic agents; Z91.030 Bee allergy status; Z88.0 Allergy status to penicillin; Z88.8 Allergy status to other drugs, medicaments and biological substances; Z87.891 Personal history of nicotine dependence
CPT/HCPCS: 36415; 80053; 81003; 83690; 85025; 99284